=== PATIENT | female | born 1990 | race Caucasian/White ===

== ENCOUNTER 2017-12-23 15:24 | Emergency (ER) | payer BC ==
[2017-12-23 16:22] VITALS: BP 97/54
--- NOTE | 2017-12-23 16:34 | UC ---
Complaint Female HPI - HPI Summary HPI Summary: pt is c/o a thick white vaginal discharge with some mild itching x 1 week. she had a recent vaginal yeast infection that resolved with a single Diflucan and this feels the same. she is /single partner and denies any risk/concern for std. no abdominal pain, fever or dysuria. - History Of Current Complaint Chief Complaint: UCGU Stated Complaint: PERSONAL Time Seen by Provider: 12/23/17 16:24 Hx Obtained From: Patient Onset/Duration: Gradual Onset Timing: Constant Pain Intensity: 0 Aggravating Factor(s): Nothing Alleviating Factor(s): Nothing Associated Signs And Symptoms: Negative: Fever, Back Pain - Allergies/Home Medications Allergies/Adverse Reactions: Allergies Allergy/AdvReac Type Severity Reaction Status Date / Time No Known Allergies Allergy Verified 12/23/17 16:18 Home Medications: Home Medications Cetirizine HCl 5 mg PO DAILY 12/23/17 [History Confirmed 12/23/17] Miconazole TOPICAL CREAM 2%* [Monistat 2%*] 1 applic VAGINAL DAILY 12/23/17 [ History Confirmed 12/23/17] PMH/Surg Hx/FS Hx/Imm Hx - Additional Past Medical History Additional PMH: allergies - Surgical History Surgical History: Yes Surgery Procedure, Year, and Place: WISDOM TEETH. HYMENECTOMY. BREAST BIOPSY - Family History Known Family History: Positive: Other - [place] - Social History Lives: With Family Alcohol Use: Weekly Substance Use Type: None Smoking Status (MU): Never Smoked Tobacco - Immunization History Vaccination Up to Date: Yes Review of Systems Constitutional: Negative Skin: Negative Eyes: Negative ENT: Negative Respiratory: Negative Cardiovascular: Negative Gastrointestinal: Negative Genitourinary: Other - white vaginal d/c with itching Motor: Negative Neurovascular: Negative Musculoskeletal: Negative Neurological: Negative Psychological: Negative Is Patient Immunocompromised?: No All Other Systems Reviewed And Are Negative: Yes Physical Exam Triage Information Reviewed: Yes Appearance: Well-Appearing Vital Signs: Initial Vital Signs Temp 98.2 F 12/23/17 16:14 Pulse 70 12/23/17 16:14 Resp 15 12/23/17 16:14 BP 97/54 12/23/17 16:14 Pulse Ox 99 12/23/17 16:14 Vital Signs Reviewed: Yes Eyes: Positive: Conjunctiva Clear ENT: Positive: Normal ENT inspection Neck: Positive: Supple, Nontender, No Lymphadenopathy Respiratory: Positive: Lungs clear, Normal breath sounds Cardiovascular: Positive: RRR, No Murmur Abdomen Description: Positive: Nontender, No Organomegaly, Soft Bowel Sounds: Positive: Present Pelvic Exam: Positive: Other - exam/pelvic cultures declined by pt Musculoskeletal: Positive: ROM Intact Neurological: Positive: Alert Psychological: Positive: Age Appropriate Behavior Skin Exam: Normal Complaint Female Dx - Course Course Of Treatment: pt declined pelvic exam and cultures. will tx for presumptive yeast vaginitis - Differential Dx/Diagnosis Provider Diagnoses: vaginitis Discharge - Sign-Out/Discharge Documenting (check all that apply): Patient Departure All imaging exams completed and their final reports reviewed: No Studies - Discharge Plan Condition: Stable Disposition: HOME Prescriptions: Fluconazole [Diflucan 150 MG (NF)] 150 mg PO ONCE #1 tab Patient Education Materials: Vaginitis (ED) Referrals: No Primary Care Phys,NOPCP [Primary Care Provider] - Additional Instructions: FOLLOW UP WITH YOUR PRIMARY CARE AT [facility] IN 5 DAYS - Billing Disposition and Condition Condition: STABLE Disposition: Home
== END 2017-12-23 16:37 | disposition home or self-care (01) ==
LOC: UCCORT 15:24
DX: N76.0 Acute vaginitis (principal)
CPT/HCPCS: 99212; G0463

== ENCOUNTER 2018-01-11 17:25 | Emergency (ER) | payer BC ==
--- NOTE | 2018-01-13 08:38 | UC ---
Discharge - Sign-Out/Discharge Documenting (check all that apply): Post-Discharge Follow Up All imaging exams completed and their final reports reviewed: No Studies - Discharge Plan Disposition: LEFT WITHOUT BEING SEEN Referrals: No Primary Care Phys,NOPCP [Primary Care Provider] - - Billing Disposition and Condition Disposition: Left Without Being Seen
== END 2018-01-11 18:24 | disposition left against medical advice (07) ==
LOC: UCCORT 17:25
DX: R05 Cough (principal); R53.83 Other fatigue; Z53.21 Procedure and treatment not carried out due to patient leaving prior to being seen by health care provider

== ENCOUNTER 2018-02-06 12:30 | Emergency (ER) | payer BC ==
[2018-02-06 14:50] VITALS: BP 91/54
--- NOTE | 2018-02-06 15:31 | UC ---
Complaint Female HPI - HPI Summary HPI Summary: patient has had multiple episodes of yeast infections in the last several months. hx of PCOS, after going off oral contraceptives the patient noted the onset of these recurrent infections. documented initially,but not subsequently - History Of Current Complaint Chief Complaint: UCGeneralIllness Stated Complaint: PERSONAL Time Seen by Provider: 02/06/18 15:10 Hx Obtained From: Patient Hx Last Menstrual Period: 01/22/18 ?: No Onset/Duration: Other - recurent vaginal discharge Timing: Intermittent Pain Intensity: 0 Character: Burning - Allergies/Home Medications Allergies/Adverse Reactions: Allergies Allergy/AdvReac Type Severity Reaction Status Date / Time No Known Allergies Allergy Verified 02/06/18 14:42 Home Medications: Home Medications Testosterone 1 applic EVERY OTHER DAY 02/06/18 [History Confirmed 02/06/18] PMH/Surg Hx/FS Hx/Imm Hx - Additional Past Medical History Additional PMH: hx. of pcos Previously Healthy: Yes - Surgical History Surgical History: Yes Surgery Procedure, Year, and Place: WISDOM TEETH. HYMENECTOMY. BREAST BIOPSY - Family History Known Family History: Positive: Other - [place] - Social History Alcohol Use: Occasionally Substance Use Type: None Smoking Status (MU): Never Smoked Tobacco - Immunization History Vaccination Up to Date: Yes Review of Systems Constitutional: Negative Skin: Negative Eyes: Negative ENT: Negative Respiratory: Negative Cardiovascular: Negative Gastrointestinal: Negative Genitourinary: Vaginal/Penile Burning, Vaginal/Penile Itching Motor: Negative Neurovascular: Negative Musculoskeletal: Negative Is Patient Immunocompromised?: No All Other Systems Reviewed And Are Negative: Yes Physical Exam Triage Information Reviewed: Yes Appearance: Well-Appearing Vital Signs: Initial Vital Signs Temp 36.7 C 02/06/18 14:44 Pulse 61 02/06/18 14:44 Resp 16 02/06/18 14:44 BP 91/54 02/06/18 14:44 Pulse Ox 98 02/06/18 14:44 Vital Signs Reviewed: Yes ENT Exam: Normal Pelvic Exam: Positive: Other - external genitalia normal, whitish discharge noted on speculum exam. no other lesions seen Complaint Female Dx - Differential Dx/Diagnosis Provider Diagnoses: candidal vaginitis Discharge - Sign-Out/Discharge Documenting (check all that apply): Patient Departure All imaging exams completed and their final reports reviewed: No Studies - Discharge Plan Condition: Fair Disposition: HOME Prescriptions: Fluconazole 100 MG TAB* [Diflucan 100 MG TAB*] 100 mg PO WEEKLY #4 tab Patient Education Materials: Vaginitis (ED) Referrals: No Primary Care Phys,NOPCP [Primary Care Provider] - - Billing Disposition and Condition Condition: FAIR Disposition: Home
== END 2018-02-06 15:42 | disposition home or self-care (01) ==
LOC: UCCORT 12:30
DX: B37.3 Candidiasis of vulva and vagina (principal)
CPT/HCPCS: 87480; 87491; 87510; 87591; 87661; 99212; G0463